=== PATIENT | female | born 1965 | race Caucasian/White ===

== ENCOUNTER → 2020-03-12 12:20 | Outpatient (CLI) | payer OTHER, SELFPAY ==
--- NOTE | 2020-03-12 12:24 | CT_ITS ---
STUDY: CT ABDOMEN AND PELVIS WITH CONTRAST REASON FOR EXAM: Female, 54 years old. 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 PRIOR CHOLECYSTECTOMY, TUB IAL LIGATION AND HERNIA REPAIR. RADIATION DOSAGE (If Supplied By Facility): CTDIvol = ( 17.11 ) mGy, DLP = ( 1966.27 ) mGycm TECHNIQUE: Transaxial images were obtained from the dome of the diaphragm to the symphysis pubis without oral contrast. IV 100mL Isovue-300 was administered. Sagittal and coronal images were reconstructed. Individualized dose optimization techniques were used for this CT. COMPARISON: Comparison is made with prior examination dated December 20, 2014. FINDINGS: There is a 6.3 mm noncalcified nodule in the right middle lobe. The visualized portions of the heart are within normal limits. Normal liver. There are surgical clips in the gallbladder fossa consistent with a prior cholecystectomy. Normal spleen. Normal pancreas. Normal bilateral adrenal glands. Normal right kidney. Normal left kidney. Normal visualized stomach. Normal small intestine. There are multiple colonic diverticula consistent with diverticulosis. The appendix is visualized and appears normal. There is scattered atherosclerotic calcification of the abdominal aorta, without a demonstrated aneurysm. Normal inferior vena cava. Normal retroperitoneum. Normal urinary bladder. There is evidence of a mesh repair of an umbilical hernia. Normal osseous structures. CT/Abdomen/Pelvis WITH Contrast IMPRESSION: Sigmoid diverticulosis. 6.3 mm noncalcified nodule in the right middle lobe. Electronically Signed: Chase Trevino, at 13:26 EDT , Service support ,
== END ==
PROVIDERS: PCP Family Medicine; Referring Provider Surgery Vascular Surgery; Visit Provider Surgery Vascular Surgery
DX: I87.1 Compression of vein (principal); N94.89 Other specified conditions associated with female genital organs and menstrual cycle; I83.893 Varicose veins of bilateral lower extremities with other complications
CPT/HCPCS: 74177; Q9967

== ENCOUNTER → 2020-07-02 13:01 | Outpatient (CLI) | payer SELFPAY ==
--- NOTE | 2020-07-02 13:07 | VDLE_ITS ---
Reason For Study: BLE PAIN RIGHT LEFT GSV is normal. GSV is normal. CFV is compressible, spontaneous, phasic, CFV is compressible, spontaneous, phasic, competent and demonstrates normal competent, and demonstrates normal augmentation. augmentation. FV is compressible, spontaneous, phasic, FV is compressible, spontaneous, phasic, competent and demonstrates normal competent and demonstrates normal augmentation. augmentation. POP V is compressible, spontaneous, phasic, POP V is compressible, spontaneous, phasic, competent and demonstrates normal competent and demonstrates normal augmentation. augmentation. T/P Trunk is compressible. T/P Trunk is compressible. PTV is compressible. PTV is compressible. RT PerV is compressible. LT PerV is compressible. Procedure Exam performed in department. The exam was diagnostic. A preliminary report was called and/or faxed to Dr. Medrano @ 1:40 pm. Interpretation Summary Bilateral no DVT. Ordering Physician: Jimmy Medrano Referring Physician: Óscar Chang Performed By: Olena Damico, RDCS, RVT
== END ==
PROVIDERS: PCP Family Medicine; Referring Provider Surgery Vascular Surgery; Visit Provider Surgery Vascular Surgery
DX: I87.1 Compression of vein (principal); I83.893 Varicose veins of bilateral lower extremities with other complications; N94.89 Other specified conditions associated with female genital organs and menstrual cycle; F41.9 Anxiety disorder, unspecified; F32.9 Major depressive disorder, single episode, unspecified; Z86.718 Personal history of other venous thrombosis and embolism
CPT/HCPCS: 93970

== ENCOUNTER → 2021-04-14 16:30 | Outpatient (CLI) | payer OTHER, SELFPAY ==
[2014-12-20 09:26] VITALS: BMI 34.3
--- NOTE | 2021-04-14 16:30 | CER_PTH ---
PATIENT: BERNARDINO NEFF LOC: [facility] U#:[id number] AGE/SX: 60/F ROOM: RE04/14/[address]: Dr. Ruben Cobb MD : 1965 BED: DIS: SPEC #: [id number] RECD: 04/15/21 09:51 STATUS: XOCHILT BEN #: [id number] ZIA: 04/14/21 16:[address]: Ruben Cobb DEPT: SURGICAL PATHOLOGY RECD BY: Rosalva Che ENTERED: 04/15/21 10:06 SP TYPE: CERV OTHR DR: Dr. Óscar Chang DO Tissues: Uterine cervix, NOS Procedures: Surgery Specimen Level IV HEADER OPERATION: Polypectomy PRE-OP DIAGNOSIS: N84.1 TISSUE SUBMITTED: Cervical polyp removal MICROSCOPIC DIAGNOSIS Cervical polyp, biopsy: Fragments of benign endocervical polyp. AM:david 04/16/2021 MICROSCOPIC DESCRIPTION Slides are reviewed. GROSS DESCRIPTION Received in fixative is one container labeled with the patient's name and designated cervical polyp. The specimen consists of multiple irregular fragments of light felix soft tissue that in aggregate measure 1.5 x 1 x 0.2 cm. The specimen is totally submitted in one cassette. / AM:david 04/15/21 TC:5 CPT: 23661
== END ==
PROVIDERS: PCP Family Medicine; Visit Provider Obstetrics & Gynecology
DX: N84.1 Polyp of cervix uteri (principal)
CPT/HCPCS: 88305

== ENCOUNTER 2021-06-15 13:12 | Observation (INO) | payer SELFPAY, OTHER ==
--- NOTE | 2021-06-10 15:52 | EKG12_ITS ---
Test Reason : PRE-OP Blood Pressure : / mmHG Vent. Rate : 076 BPM Atrial Rate : 076 BPM P-R Int : 146 ms QRS Dur : 096 ms QT Int : 390 ms P-R-T Axes : 043 025 046 degrees QTc Int : 438 ms Normal sinus rhythm Normal ECG Confirmed by JESENIA TRIPATHI, ONRMAN ([id number]), brands editor JAIME LO ([id number]) on 06/11/2021 1:37:42 PM Referred By: Ruben Cobb Confirmed By:NORMAN BA MD
[2021-06-10 17:02] LABS: Hematocrit 35.7 % (37-47); Hemoglobin 11.6 g/dL (12.0-15.0); Mean Corp Hgb Conc 32.5 g/dL (32-36); Mean Corpuscular Hgb 28.9 pg (27.0-32.0); Mean Platelet Vol. 9.9 fl (6.2-12.0); Platelet Count 255 K/mm3 (150-450); RBC Distribution Width CV 12.9 % (11.6-14.6); Red Blood Count 4.01 M/mm3 (4.2-5.4); White Blood Count 5.2 K/mm3 (4.4-11.0)
[2021-06-10 17:15] LABS: International Normalized Ratio 1.1; Prothrombin Time (Protime)PT. 13.2 SECONDS (11.7-14.9)
[2021-06-10 17:16] LABS: Partial Thromboplast Time 28.3 Seconds (24.1-36.2)
[2021-06-10 17:37] LABS: ALB/GLOB Ratio 1.2 RATIO (0.9-2.4); AST(SGOT) 19 U/L (15-37); Alanine Aminotransfer ALT/SGPT 32 U/L (13-56); Albumin, Serum 3.8 g/dL (3.2-5.0); Alkaline Phosphatase 56 U/L (45-117); Anion Gap 6 (5-15); BUN 14 mg/dL (7-18); BUN/Creat Ratio 26.1 RATIO (10-20); Calcium,Total 8.3 mg/dL (8.5-10.1); Chloride 107 mmol/L (98-107); Creatinine, Serum 0.54 mg/dL (0.55-1.02); EST Glomerular Filtration Rate 126 mL/min (>60); Est Glom Filt Rate - Afr Amer 152 mL/min (>60); Globulin 3.3 g/dL (2.2-4.2); Glucose 88 mg/dL (74-106); Magnesium 1.9 mg/dL (1.6-2.6); Potassium 3.5 mmol/L (3.5-5.1); Protein, Total 7.1 g/dL (6.4-8.2); Sodium Level 140 mmol/L (136-145)
--- NOTE | 2021-06-14 13:07 | PCM.HP.BLA ---
History and Physical Date of Admission: 06/15/21 Surgical History and Physical Soo Rodriguez, a 56 year old female 7 0 0 0 7, presents for LAVH/BSO/AP Repair on June 15 at 7:30. -- Prolapse Symptoms and Pressure -- Soo is a 47 y/o P7 now likely menopausal with complaints of abdominal pain on a daily basis that has been getting worse. She states it usually occurs in the right upper abdomen but sometimes travelsacross upper abdomen and rarely into the right lower abdomen. Pain is sometimes burning in character. She chavez constipation rarely diarrhea. Had colonoscopy 4 years ago which was normal per report. Last menses 6 months ago. SOme frequency of urination. No true pelvic pain. No hx of cysts or fibroids. No hx of ovarian cancer. This pain has been present for 10 years. SHe feels something is just not right. Does not associate with particular foods. No increase or decrease in weight. Just low abdominal pressure/pain and bilateral leg edema. 55 y.o. G 7 P 7 post-menopausal non-smoker and reports that she has had problems for the last 2 years and it has worsened in the last 2-3 months. Low abdominal pain/pressure/Bilateral Leg edema which began Nov 2019. Soo claims it started gradually and has been present worsened in last 2-3 months. It occurs all the time. It is located in the lower abdomen. Soo characterizes it to be down to the legs. Soo characterizes the quality low pressure, edema in legs. Severity is moderate and not improving. Associated signs and symptoms are some prolpase sxs and TERRY; urinary frequency and pain mid pelvis deep at symphasis; hx of umbilical hernia repair per Glen[facility] Lowry. Additional comments are: had bilateral coils placed ovarian veins for pelvic congestion syndrome with little relief; u/s with normal uterus but large varicosities. MEDICATIONS HISTORY: Patient is also takin. Herbs, Vitamins, Minerals multiple x per day ALLERGIES: Sulfa, ? vomiting, Sulfa (Sulfonamide Antibiotics), Severe nausea & vomiting, Macrobid and Palpitations Infections - Bronchitis and Chicken pox Illnesses - Diverticulitis SX ( undiagnosed) Accidents - None Hospitalizations - Childbirth and see surgery Review of Systems: GENERAL - Denies fever, or chills SKIN - Denies skin changes EYES - Denies visual changes EARS - Denies difficulty hearing NOSE - Denies nasal congestion or bleeding MOUTH - Denies sore throat or difficulty swallowing NECK - Denies pain or swelling RESPIRATORY - Denies shortness of breath or wheezing CARDIOVASCULAR - Denies palpitations or chest pain GASTROINTESTINAL - Denies nausea, vomiting, diarrhea, constipation GENITOURINARY - Denies dysuria, frequency of urination, incontinence of urine MUSCULOSKELETAL - Denies joint or muscle pain NEUROLOGICAL - Denies localized numbness or weakness PSYCHIATRIC - Denies depression or anxiety ENDOCRINE - Denies heat or cold intolerance, weight loss or gain HEMATO-IMMUNOLOGIC - Denies excesive bleeding with cuts SOCIAL HISTORY: Alcohol Use - denies drinking Smoking - Never Diet - moderate, balanced diet Lifestyle - moderate stress lifestyle and Exercise - active work Seat Belt Use - always Employer - [employer] Illicit Drug Use - denies use of street drugs Sexual Activity - Spouse-Sig Other Name - Atlee Hostettler Spouse-Sig Other Occupation - [employer] Children Name(s) - 7 children Control - Tubal FAMILY HISTORY: Father: Hypertension. MENSTRUAL HISTORY: LMP Known?- Best GuessAmount/Duration - 5 days, Regularity - missed periods, LMP - 04/21/11, Age Onset Menarche - 11 PAST PREGNANCIES: Total Pregnancies - 7; Full Term Pregnancies - 7; Premature - 0; Abortions, Induced - 0; Abortions, Spontaneous - 0; Ectopics - 0; Multiple Births - 0; Living Children - 7 SURGICAL HISTORY: 1. Cholecystectomy 2000 2. Tubal in 1996 3. 2011 Hernia Repair ; Glenroy Lowry 4. 2020 Vein Surgery with Coil Placement ; Dr. Medrano PHYSICAL EXAM BP- 126/68 Sitting, Right arm, regular cuff Weight- 214.30516 lbs Height- 62.75 inch BMI:38.3 CONSTITUTIONAL - NAD, well nourished, and well developed SKIN - No rash, lesions, or ulcers HEENT - Normocephalic, PERRLA, EOMI NECK - No nodes, no nuchal rigidity and thyroid normal size and texture LYMPH NODES - Palpation of lymph nodes in neck and groins within normal limits LUNGS - CTA x2 without wheezes, crackles or rales CARDIAC - Regular rate and rhythm without rubs, murmurs, or gallops ABDOMEN - Without hepatosplenomegaly, distention, masses, rebound, or guarding; normal bowel sounds; no hernias EXTREMITIES - No edema or calf tenderness NEUROLOGICAL - Cranial nerves II-XII grossly intact PSYCHIATRIC - A and O to time, place, person, mood and affect External Genitial Vagina - non-tender without lesions Urethra/Urethral Meatus - non-tender Bladder - non-tender Vagina - loss of rugae, large rectocele and moderate rectocele; cystocele to introitus at rest Cervix - without cervical motion tenderness and has normal size and features without evident lesions and 1 cm polyp noted and removed and sent to pathology; cervix protrudes to within 1-2 cm of introitus at rest Uterus - multiparous size 6 cm & wt 75-125 g and tender over fundus of uterus Adnexa - clear without massess or tenderness Pap - done -- Reflex to ASCUS, LSIL, MINGO ASSESSMENT/PLAN: 1. Uterovaginal Prolapse Incomplete Likely cause of discomfort is prolapse with pelvic congestion as incidental finding. May also be due to trigonitis or even some adhesions from hernia repair. Treatment with macrobid did not help and she was started on intravaginal estrogen. Given this did not help, will proceed with LAVH/BSO/AP Repair. Discussed RBAs and all questions answered. We discussed that it would be preferable to avoid laparoscopic placement if possible due to the umbilical mesh so if the procedure can be performed vaginally we would attempt vaginal hysterectomy without laparoscopic assistance. She understands that if laparoscopic assistance is not used that ovaries may be left in place.
[2021-06-15] VITALS (16 sets, daily range): BP systolic 99–122; BP diastolic 53–74; PULSE 58–82; RESP 14–18; TEMP 36.3–36.9; O2SAT 93–100; BMI 39.2; BMI 37.9
[2021-06-15] MEDS: Acetaminophen 500 MG Tablet 1000 MG PO ×4 (06:18→23:25)
[2021-06-15] MEDS: Gabapentin 600 MG Tablet PO (06:18)
[2021-06-15] MEDS: Lactated Ringers 1,000 ML 40 ML IV (06:28)
[2021-06-15] MEDS: Lactated Ringers 1,000 ML 100 ML IV ×2 (06:34→11:40)
[2021-06-15] MEDS: Cefazolin 2 GM in 0.9% Normal Saline 100 ML IV (07:30)
--- NOTE | 2021-06-15 07:30 | HYST_PTH ---
PATIENT: BERNARDINO NEFF LOC: [facility] U#:[id number] AGE/SX: 56/F ROOM: SD320 RE06/15/[address]: Dr. Ruben Cobb MD : 1965 BED: 1 DIS: 06/16/2021 SPEC #: [id number] RECD: 06/15/21 11:34 STATUS: XOCHILT CONTRERAS #: [id number] ZIA: 06/15/21 07:[address]: Ruben Cobb DEPT: SURGICAL PATHOLOGY RECD BY: Priya Mota ENTERED: 06/15/21 13:48 SP TYPE: HYSTERECT OTHR DR: Dr. Óscar Chang DO Tissues: Uterus, NOS Procedures: Surgery Specimen Level V HEADER OPERATION: ERAS, laparoscopic assisted vaginal hysterectomy PRE-OP DIAGNOSIS: Uterovaginal prolapse incomplete TISSUE SUBMITTED: Uterus, cervix, bilateral fallopian tubes and ovaries and vaginal mucosa MICROSCOPIC DIAGNOSIS Uterus, cervix, bilateral fallopian tubes, ovaries and vagina mucosa, vaginal hysterectomy, bilateral salpingo-oophorectomy and anterior and posterior repair: Cervix ? mild chronic cystic cervicitis. Endometrium ? proliferative endometrium. Myometrium - no pathologic diagnosis. Bilateral fallopian tubes - no pathologic diagnosis. Bilateral ovaries - no pathologic diagnosis. Vaginal mucosa ? mild to moderate chronic inflammation. SJ:rg 06/16/2021 MICROSCOPIC DESCRIPTION Slides are reviewed. GROSS DESCRIPTION Received in fixative is one container labeled with the patient's name and designated uterus, cervix, bilateral fallopian tubes, bilateral ovaries and vaginal mucosa. The specimen consists of a hysterectomy specimen consisting of uterus with cervix and attached bilateral fallopian tubes and ovaries and detached pieces of mucosal tissue. The uterus with cervix weighs 58 gm and measures 7 x 5 x 3 cm. The serosal surface is felix, glistening. The ectocervical mucosa is focally eroded. The external os is oval and patulous in contour. The endocervical canal measures 2.5 cm in length and the endocervical mucosa is felix, glistening and unremarkable. The triangular endometrial cavity measures 3.5 cm in length and 2 cm in width. The endometrium is felix, glistening without any mass lesion and measures <0.1 cm in thickness. Sections of the uterine wall do not reveal any mass lesion and measures 1.5 cm in thickness. The right fallopian tube measures 5.5 cm in length and 0.5 cm in diameter. The fimbrial end is identified. No tubo-ovarian adhesions are noted. The fallopian tube appears to be interrupted in the middle consistent with previous tubal ligation. The right ovary measures 2 x 0.6 x 0.6 cm. Sections reveal unremarkable cut surfaces. The left fallopian tube is similar appearance to right and measures 7 cm in length and up to 0.5 cm in diameter. The left ovary measures 3.5 x 0.5 x 0.5 cm. Sections do not reveal any mass lesion. Also present in the container are multiple variable sized pieces of mucosal tissue measuring in aggregate 7 x 3 x 0.5 cm. No mucosal lesion is identified. Multiple instrumentation gibbons are noted. Supervisor Finishing sections are submitted in nine cassettes as follows: 1 - anterior cervix, 2 - posterior cervix, 3 & 4 - anterior uterine wall, 5 & 6 - posterior uterine wall, 7 - right fallopian tube and ovary, 8 - left fallopian tube and ovary, 9 - detached mucosal tissue. / SJ:rg 06/15/21 TC:3 CPT: 29854
[2021-06-15] MEDS: Ropivacaine 0.5% 30 ML Vial (07:59)
[2021-06-15 08:25] LABS: Bedside Glucose 93 mg/dL (70-110)
--- NOTE | 2021-06-15 10:41 | OP.PCM_ITS ---
Report of Operation Date of Procedure: 06/15/21 Pre-Operative Diagnosis: Uterovaginal Prolapse, Cystocele, Rectocele Post-Operative Diagnosis: Uterovaginal Prolapse, Cystocele, Rectocele Surgery/Procedure Performed:: Laparoscopic Assisted Vaginal Hysterectomy, Bilateral Salpingo-Oophorectomy, Anterior Posterior Repair Description of Surgical Findings:: 8 cm uterus with normal-appearing fallopian tubes and ovaries. Cervix which prolapsed to within 2 cm of the vaginal introitus. Large cystocele protruding 1 cm outside the introitus. Moderate rectocele. Adhesions of omentum to umbilicus from prior hernia repair. Otherwise, minimal adhesions. Surgeon: Ruben Cobb wood window and door craftsman: Lukas Lowry wood window and door craftsman: Brittney Gomez Type of Anesthesia: General (Endotracheal) Anesthesiologist: Myla Segal Specimen's removed: Uterus, bilateral fallopian tubes and ovaries, vaginal mucos a Drains: Lepe to straight drain Estimated Blood Loss (mL): 200 cc Fluids Replaced: Crystalloid Description of Procedure: Surgeon: Ruben Cobb MD, FACOG Indications: This is a 56-year-old 7 para 7 who is been having problems with vaginal pressure and prolapse symptoms. Conservative measures have not been helpful. Given this the patient desires that we proceed the above procedure. She has been counseled regarding the risk and indications of this procedure including the possibility of bleeding, infection, and injury to surrounding structures such as bowel bladder. All questions were answered. Procedure: Patient was taken to the operating room where after induction of general anesthesia she was placed in the dorsal lithotomy position and prepped and draped in the usual sterile fashion. A Lepe catheter was placed. Anterior cervix was grasped with a tenaculum and anterior cervix circumscribed with cautery on a setting of 35 W coagulation. Anterior vaginal mucosa was undermined and a 4 x 4 raytec sponge was placed to identify the peritoneal reflection of the bladder intraperitoneally. Conn cannula was placed and attention was turned towards the laparoscopic portion of the procedure. Approximately 17 cc of half percent ropivacaine was injected approximately 10 cm left lateral to the umbilicus and after confirming no adhesions present a 5 mm bladeless trocar was introduced suprapubically and approximately 10 cm right lateral to the umbilicus. CO2 insufflation was completed. Enseal was used to cauterize a small portion of the adhesions of the omentum to the umbilicus followed by ligating the infundibulopelvic ligaments to the level of the round ligament. CO2 gas was stopped and attention turned toward the vaginal hysterectomy portion of the procedure. A narrow Matilde was placed anteriorly and the posterior aspect of the cervix was circumscribed with a knife and posterior peritoneum easily entered. Progressive bites were taken on either side of the uterine cervix and each pedicle ligated with 0 Vicryl suture. Superior pedicles were ligated ?2 with 0 Vicryl suture and sidewall pedicles were examined and oversewn where necessary with [id number] 0 Vicryl suture to achieve hemostasis. Posterior vaginal cuff was oversewn with running locked 0 Vicryl suture. Hemostasis was noted and peritoneum was closed in a pursestring fashion incorporating superior pedicles into the stitch. Attention was turned toward the anterior and posterior portion of the procedure. Anterior vaginal mucosa was undermined and divided and then imbricated toward the midline with interrupted 0 Vicryl sutures. Vaginal mucosa was trimmed and then closed with interrupted 2-0 chromic suture. Vaginal cuff was then closed front to back with interrupted [id number] 0 Vicryl suture. Hemostasis was noted. Attention was turned toward the posterior repair portion of the procedure. Remnants of the hymenal ring were grasped with Allises and a V-shaped incision was made in the perineum. Rectovaginal mucosa was then undermined divided and then imbricated toward the midline with interrupted 0 Vicryl suture. Vaginal mucosa was trimmed and then closed with running locked 2-0 chromic suture. Remnants of the bulbocavernosus muscles were identified and brought toward the midline with a single thttab-[id number] 0 Vicryl suture and perineum was closed in the usual fashion with running and subcuticular, and rceabb-ye-terwq 2-0 chromic suture. Hemostasis was noted. Lepe catheter was again opened and clear yellow urine was noted. Vagina was packed with iodoform tape. Hemostasis was noted. Attention was turned toward the laparoscopic portion of the procedure. CO2 insufflation was completed and pedicles were examined and noted to be hemostatic. The right ureter was noted to peristalsis. Laparoscopic instruments with as much CO2 gas as possible was removed and skin incisions were closed with interrupted 4-0 Monocryl suture. Steri-Strips and OpSite was placed across the incisions. Patient tolerated the procedure well was taken to recovery room in satisfactory condition; sponge instrument and needle counts were all reportedly correct. Estimated blood loss for the case was 200 cc. Ancef 2 g IV was given prior to beginning the operative procedure. There were no apparent complications of the surgery. Specimen to pathology was uterus and bilateral fallopian tubes and ovaries and vaginal mucosa. Grafts/Implants Used: None Complications None Admit VTE Documentation VTE Present on Admission: Yes VTE Mechan Device Prophylaxis: SCD's
--- NOTE | 2021-06-15 11:59 | DCINST_ITS ---
Discharge Instructions Diet Discharge Diet: No restrictions Activity Discharge Activity: May Shower and May Take a Tub Bath May resume sexual activity in: 6-8 weeks Lifting Restrictions: Less than 25 pounds for 6 weeks Additional Activity Instructions:: Nothing in the vagina for 6 weeks please; no lifting more than 20-25 lbs for 6 weeks. Use Ibuprophen 800 mg orally every 8 hours as needed for pain. Can also add Tylenol 1000 mg every 8 hours if needed for pain. If Ibuprophen and Tylenol are not effective then use the Oxycodone but keep in mind it can cause serious constipation issues. Drink lots of water. Call if bleeding more than a pad per hour. Use the colace as constipation is a big issue after this type of surgery. Steps and walking are OK. Activity is encouraged but do not over do it !! Dressing / Incision Call your doctor if you observe: Fever of 101 or Higher, Inability to urinate and Inability to have a bowel movement Follow Up Care Please Follow Up With: Ruben Cobb MD When: 2 to 3 weeks Test Results: Test results from this visit will be discussed in further detail at your follow-up appointment, if applicable. Discharge Plan Admission Admit Date/Time: 06/15/21 13:12 Primary Reason for Your Visit: Vaginal Hysterectomy Attending Provider: Ruben Cobb Primary Care Provider: Óscar Chang Discharge Orders/Prescriptions Prescriptions: New docusate sodium 100 mg tablet 100 mg PO BID PRN (Reason: constipation) Qty: 60 RF: 1 Continued Nata[place]ena 2 tab PO/SL DAILY RF: 0 xgoovbx-dwzqfcuh-touiclkeds 333-333-100 mg Tablet 2 - 3 tab PO DAILY RF: 0 calcium-vitamin A-vitamin D 200-725-200 mg-ktkc-owcz Capsule 8 cap PO DAILY RF: 0 [place] Oil 1,000 mg Capsule 3 cap PO DAILY RF: 0 Herbal Calcium 10 ml PO/SL QHS RF: 0 L-Lyine 4 tab PO/SL BID RF: 0 ibuprofen 200 mg Tablet 400 mg PO DAILY RF: 0 Referrals / Follow Up: Óscar Chang DO [Primary Care Provider] - Disposition Disposition (needs filled in before D/C Order can be placed): Home, Self Care
[2021-06-15] MEDS: oxyCODONE 5 MG Tablet PO ×2 (13:20→18:19)
[2021-06-15] MEDS: Cefazolin 1 GM/50 ML BAG IV ×2 (15:34→23:24)
[2021-06-15] MEDS: Magnesium Chloride 64 MG Delay Rel.Tablet 128 MG PO (15:40)
[2021-06-15] MEDS: DOXYLAMINE SUCCINATE 25 MG TABLET PO (22:25)
[2021-06-15] MEDS: Docusate Sodium 100 MG Capsule PO (22:26)
[2021-06-16 02:08] VITALS: BP 101/58; PULSE 68; RESP 16; TEMP 36.8; O2SAT 95
[2021-06-16] MEDS: oxyCODONE 5 MG Tablet PO (02:14)
[2021-06-16 05:25] VITALS: BP 100/56; PULSE 60; RESP 16; TEMP 37; O2SAT 94
[2021-06-16] MEDS: Cefazolin 1 GM/50 ML BAG IV (06:32)
[2021-06-16] MEDS: Acetaminophen 500 MG Tablet 1000 MG PO ×2 (06:33→12:35)
[2021-06-16 07:04] LABS: Hematocrit 33.2 % (37-47); Hemoglobin 10.7 g/dL (12.0-15.0); Mean Corp Hgb Conc 32.2 g/dL (32-36); Mean Corpuscular Hgb 29.5 pg (27.0-32.0); Mean Corpuscular Volume 91.5 fL (81-99); Mean Platelet Vol. 9.7 fl (6.2-12.0); Platelet Count 226 K/mm3 (150-450); RBC Distribution Width SD 43.6 fl (35.1-43.9); Red Blood Count 3.63 M/mm3 (4.2-5.4); White Blood Count 9.1 K/mm3 (4.4-11.0)
[2021-06-16 07:25] VITALS: O2SAT 93
--- NOTE | 2021-06-16 08:15 | PN.OBGYN_ITS ---
Subjective Subjective Patient without complaints. Tolerating diet well. Minimal pain. Denies any vaginal bleeding. Objective Data Objective Data Vital Signs: Vital Signs Temp Pulse Resp BP Pulse Ox 98.6 F 60 16 100/56 L 93 06/16/21 05:25 06/16/21 05:25 06/16/21 05:25 06/16/21 05:25 06/16/21 07:25 Oxygen Flow Rate (L/min) 6 Oxygen Delivery Method Room Air Weight: 207 lb 8.156 oz Body Mass Index (BMI) 37.9 Intake & Output: Intake and Output for Last 24 Hours 06/14/21 06/15/21 06/16/21 23:59 23:59 23:59 Intake Total 5616 / 5616 1000 / 1000 Output Total 3590 / 3590 1400 / 1400 Balance 2025 / 2025 -400 / -400 Lab / Micro Data Result Diagrams: 06/16/21 06:50 06/10/21 16:13 Labs: Laboratory Results - last 24 hr 06/15/21 06:36: POC Glucose 93 06/16/21 06:50: WBC 9.1, RBC 3.63 L, Hgb 10.7 L, Hct 33.2 L, MCV 91.5, MCH 29.5, MCHC 32.2, RDW Std Deviation 43.6, RDW Coeff of Patrice 13.0, Plt Count 226, MPV 9.7 Micro: Microbiology 06/12/21 13:05 Interface Orders SARS-CoV-2 Antigen (Rapid) - Final Physical Exam Narrative Vaginal pack removed and minimal bleeding noted. Good urine output. Hemoglobin stable. Assessment & Plan (1) Uterovaginal prolapse, incomplete: (2) Cystocele: PLAN: Doing well postoperative day #1 status post laparoscopic assisted vaginal hysterectomy and bilateral salpingo-oophorectomy with AP repair. Will discharge to home later today when able to void on own after Lepe is di scontinued.
[2021-06-16 09:17] VITALS: BP 103/64; PULSE 63; RESP 18; TEMP 37; O2SAT 97
[2021-06-16] MEDS: Docusate Sodium 100 MG Capsule PO (09:32)
[2021-06-16 12:37] VITALS: BP 96/53; PULSE 65; RESP 16; TEMP 36.3; O2SAT 99
--- NOTE | 2021-06-16 16:00 | PHA.DC.MC ---
Pharmacy Service has performed discharge medication reconciliation and counseling for this patient. 1. DOCUSATE 100MG PO BID PRN CONSTIPATION The patient's discharge medication list was reviewed for discrepancies and discrepancies were resolved. Patient would like medication delivered to room. This [facility] to [facility]. They will deliver med. Home Medications Herbal Calcium 10 ml PO/SL QHS 06/08/21 L-Lyine 4 tab PO/SL BID 06/08/21 Natafena 2 tab PO/SL DAILY 06/08/21 [place] Oil 3 cap PO DAILY 06/08/21 calcium-vitamin A-vitamin D 8 cap PO DAILY 06/08/21 hjwqmgg-ggbuuwsz-kuysipwshx 2 - 3 tab PO DAILY 06/08/21 docusate sodium 100 mg PO BID PRN #60 tab 06/15/21 ibuprofen 400 mg PO DAILY 06/15/21 The patient was counseled on the following discharge medications and changes in medications for homegoing were reviewed. The Reason for Use, instructions for use, and potential side effects were reviewed for all new medications. The patient's questions regarding all of their medications were answered. The patient was able to verbally demonstrate an understanding of their discharge medications.
== END 2021-06-16 13:49 | disposition home or self-care (01) ==
PROVIDERS: Anesthesiology; Admitting Provider Obstetrics & Gynecology; PCP Family Medicine; Referring Provider Obstetrics & Gynecology; Visit Provider Obstetrics & Gynecology
PROC: 0UT9FZZ Resection of Uterus, Via Natural or Artificial Opening With Percutaneous Endoscopic Assistance (ICD-10-PCS; CPT 57260; principal; 2021-06-15 07:05)
DX: N81.2 Incomplete uterovaginal prolapse (principal); N72 Inflammatory disease of cervix uteri; Z86.718 Personal history of other venous thrombosis and embolism; R23.8 Other skin changes
CPT/HCPCS: 00940; 57260; 58552; 36415; 80053; 82962; 83735; 85027; 85610; 85730; 86850; 86900; 86901; 87426; 88307; 93005; 94762; 96361; 96365; 96366; 99218; C9803; J7040; J7120; C1760; G0378; J2405